=== PATIENT | female | born 1995 | race Caucasian/White ===

== ENCOUNTER 2021-07-30 19:34 | Emergency (ER) | payer OTHER ==
[2021-07-30 19:58] VITALS: BP 122/77; PULSE 67; TEMP 98.1; BMI 33.3
[2021-07-30] MEDS ORDERED: IBUPROFEN 600 MG TABLET (FP) PO ONE ×2 (20:46→20:52)
== END 2021-07-30 22:00 | disposition home or self-care (01) ==
LOC: JERFT 19:34
DX: M54.6 Pain in thoracic spine (principal)
CPT/HCPCS: 72070-TC-FY; 99283-25

== ENCOUNTER → 2022-05-28 | Emergency (ER) | payer OTHER ==
[2022-05-28 17:49] VITALS: BP 119/76; PULSE 79; RESP 17; TEMP 98; BMI 32.4
== END | disposition left against medical advice (07) ==
LOC: JER 17:05 → JERFT 17:05
DX: R10.9 Unspecified abdominal pain (principal)
CPT/HCPCS: 99281-25

== ENCOUNTER 2024-03-26 17:13 | Emergency (ER) | payer SELFPAY ==
[2024-03-26 17:16] VITALS: BP 122/79; PULSE 78; RESP 18; TEMP 99; BMI 32.3
[2024-03-26] MEDS ORDERED: SUCRALFATE 1 GM TABLET (FP) ONE (18:51)
[2024-03-26] MEDS ORDERED: MAG HYDROX/AL HYDROX/SIMETH 30 ML UNIT-DOSE CUP ONE (18:51)
[2024-03-26] MEDS ORDERED: FAMOTIDINE 20 MG TABLET ONE (18:51)
[2024-03-26] MEDS: SODIUM CHLORIDE 0.9% 500 ML INFUS.BAG IV ONE (18:57)
[2024-03-26] MEDS: MAG HYDROX/AL HYDROX/SIMETH 30 ML UNIT-DOSE CUP PO ONE (18:57)
[2024-03-26] MEDS: FAMOTIDINE 20 MG TABLET PO ONE (18:57)
[2024-03-26 19:12] LABS: BASO % 0.9 % (0-2.0); EOS % 4.5 % (0-4.5); HEMATOCRIT 36.2 % (32.4-45.2); HEMOGLOBIN 12.1 GM/dL (10.7-15.3); LYMPH % 36.5 % (8-40); MCH 27.4 pg (25.7-33.7); MCHC 33.4 g/dl (32.0-36.0); MEAN CELL VOLUME 82.1 fl (80-96); MEAN PLT VOLUME 7.8 fl (7.5-11.1); MONO % 10.9 % (3.8-10.2); NEUT % 47.2 % (42.8-82.8); PLATELET COUNT 294 10^3/uL (134-434); RDW 13.6 % (11.6-15.6); WHITE BLOOD COUNT 4.5 K/mm3 (4.0-10.0)
[2024-03-26] MEDS: SUCRALFATE 1 GM/10 ML UNIT DOSE CUPS PO ONE (19:12)
[2024-03-26 19:21] LABS: POTASSIUM 4.2 mmol/L (3.5-5.1)
[2024-03-26 19:23] LABS: CALCIUM 8.8 mg/dL (8.5-10.1)
[2024-03-26 19:24] LABS: ALBUMIN 2.9 g/dl (3.4-5.0)
[2024-03-26 19:27] LABS: CREATININE 0.9 mg/dL (0.55-1.3)
[2024-03-26 19:28] LABS: BILIRUBIN,TOTAL 0.2 mg/dL (0.2-1); TOT PROT 6.7 g/dl (6.4-8.2)
== END 2024-03-26 20:10 | disposition home or self-care (01) ==
LOC: JER 17:13
DX: R10.13 Epigastric pain (principal); R19.7 Diarrhea, unspecified
CPT/HCPCS: 36415; 80053; 83690; 84703; 85025; 99283-25